=== PATIENT | female | born 1930 | race Caucasian/White ===

== ENCOUNTER 2019-02-04 09:47 | Emergency (ER) | payer MEDICARE, BC ==
[2019-02-04 10:02] VITALS: BP 157/63
--- NOTE | 2019-02-04 10:10 | ED Physician Documentation ---
General Adult - HISTORIAN Historian: patient - HPI Stated Complaint: bite on left knee Chief Complaint: General Adult Additional Information: Patient presents to ED with a 2 day history of bug bite to left knee. Patient states it is painful and itches occasionally. Patient has a PMH of bronchiectasis, sss, HTN. She has no other complaints today. Onset: days ago (2) Timing: still present Severity: mild - ROS CONST: denies: fever EYES/ENT: denies: problems with vision CVS/RESP: denies: chest pain, shortness of breath GI/: denies: abdominal pain, problems urinating, vomiting, nausea MS/SKIN/LYMPH: none NEURO/PSYCH: denies: headache - PAST HX Past History: COPD, other (Bronchiectasis) Other History: none Surgeries/Procedures: none Allergies/Adverse Reactions: Allergies Allergy/AdvReac Type Severity Reaction Status Date / Time No Known Allergies Allergy Verified 02/04/19 10:02 Home Medications: Ambulatory Orders Medication Instructions Recorded Albuterol Sulfate [Proventil Hfa] 1 puff INH DAILY PRN 02/04/19 Amoxicillin/Potassium Clav 1 each PO BID 7 Days #14 tablet 02/04/19 [Augmentin 875-125 Tablet] Aspirin [Aspir-Low] 1 tab PO BID 02/04/19 Fluticasone Propion/Salmeterol 2 puff INH BID 02/04/19 [Advair 250-50 Diskus] amLODIPine BESYLATE [Norvasc] 5 mg PO 199902/04/19 - SOCIAL HX Smoking History: non-smoker Alcohol Use: none Drug Use: none - FAMILY HX Family History: No - VITAL SIGNS Vital Signs: Vital Signs Temp Pulse Resp BP Pulse Ox 97.4 F L 72 19 157/63 92 02/04/19 09:59 02/04/19 09:59 02/04/19 09:59 02/04/19 09:59 02/04/19 09:59 - REVIEWED ASSESSMENTS Nursing Assessment Reviewed: Yes Vitals Reviewed: Yes General Adult Physical Exam - PHYSICAL EXAM GENERAL APPEARANCE: no distress EENT: KHLOE NECK: supple RESPIRATORY: no resp distress, other (scattered occasional wheezing bilaterally) CVS: reg rate & rhythm, murmur ABDOMEN: soft, normal bowel sounds, non-tender BACK: normal inspection, no CVA tenderness SKIN: warm/dry, normal color, other (2 cm round erythematous lesion with black pinpoint center.) EXTREMITIES: non-tender NEURO: oriented X3, mood/affect nml, cognition normal Discharge Clincal Impression: Spider bite Qualifiers: Encounter type: initial encounter Injury intent: accidental or unintentional Qualified Code(s): T63.301A - Toxic effect of unspecified spider venom, accidental (unintentional), initial encounter Prescriptions: Amoxicillin/Potassium Clav [Augmentin 875-125 Tablet] 1 each PO BID 7 Days #14 tablet Referrals: Primary Doctor,No [Primary Care Provider] - 2 Days Additional Instructions: 1. Take antibiotics as directed 2. Apply ice or heat to area as needed for comfort 3. Tylenol as needed for pain 4. Follow up with PCP within 1 week 5. Return to ER for new or worsening symptoms Condition: Stable Disposition: 01 HOME, SELF-CARE Decision to Admit: NO Date of Decison to Admit: 02/04/19 Decision Time: 10:21
== END 2019-02-04 10:25 | disposition home or self-care (01) ==
LOC: ED 09:47
DX: S80.862A Insect bite (nonvenomous), left lower leg, initial encounter (principal); W57.XXXA Bitten or stung by nonvenomous insect and other nonvenomous arthropods, initial encounter
CPT/HCPCS: 99281; 99284

== ENCOUNTER 2019-02-20 07:39 | Outpatient (CLI) | payer MEDICARE, BC ==
[2019-02-20 09:39] LABS: HDL 53 mg/dL (>40); eGFR (Non-African) > 60
== END 2019-02-20 07:44 | disposition home or self-care (01) ==
LOC: LAB 07:39
PROVIDERS: ATTEND Internal Medicine Cardiovascular Disease
DX: I10 Essential (primary) hypertension (principal); I25.10 Atherosclerotic heart disease of native coronary artery without angina pectoris; I44.1 Atrioventricular block, second degree; E78.5 Hyperlipidemia, unspecified
CPT/HCPCS: 36415; 80053; 80061